=== PATIENT | female | born 1960 | race Caucasian/White ===

== ENCOUNTER → 2023-12-01 07:36 | Outpatient (REF) | payer OTHER, SELFPAY | LOC: EMG 07:36 | PROVIDERS: ATTENDING PHYSICIAN Orthopaedic Surgery Hand Surgery | DX: M25.532 Pain in left wrist (principal); R20.0 Anesthesia of skin | CPT/HCPCS: 95886; 95909 ==

== ENCOUNTER → 2024-04-04 07:16 | Outpatient (REF) | payer OTHER, SELFPAY | LOC: RAD 07:16 | PROVIDERS: ATTENDING PHYSICIAN Family Medicine | DX: R06.02 Shortness of breath (principal); Z85.3 Personal history of malignant neoplasm of breast | CPT/HCPCS: 71250 ==

== ENCOUNTER → 2024-06-21 14:37 | Outpatient (REF) | payer OTHER, SELFPAY | LOC: RAD 14:37 | PROVIDERS: ATTENDING PHYSICIAN Internal Medicine Critical Care Medicine; FAMILY PHYSICIAN Family Medicine | DX: R91.1 Solitary pulmonary nodule (principal) | CPT/HCPCS: 71250 ==

== ENCOUNTER → 2024-07-26 10:15 | Outpatient (REF) | payer OTHER, SELFPAY ==
--- NOTE | 2024-07-26 11:51 | CARDSERVLU ---
Addendum entered by Jayashree Alarcon RN 07/26/24 11:56:
correction-2x2 applied and taped
Original Note:
Echocardiogram with Lumason completed after protocol screening completed. Allergies verified.
Patent IV site: _Left metacarpal 22 G PC inserted by IV team____
IV site flushed with 0.9% NaCl pre and post administration.
Diluted bolus method utilized to enhance visualization of ventricular beltran.
Total volume given: ___4_ mL
Patient tolerated all procedures well without complications.
Heplock D/Freddie at 1148, site clear, no redness, no edema. Pressure held, no bleeding,22 applied and taped. Pt offers no complaints.
== END ==
LOC: RCS 10:15
PROVIDERS: ATTENDING PHYSICIAN Internal Medicine Cardiovascular Disease; FAMILY PHYSICIAN Family Medicine
DX: R06.02 Shortness of breath (principal)
CPT/HCPCS: 93306; Q9950

== ENCOUNTER 2024-07-29 08:50 | Day surgery (SDC) | payer OTHER, SELFPAY ==
[2024-07-08 08:23] VITALS: BMI 26.9
[2024-07-08 09:39] LABS: INR 1.06; PT 13.6 Sec (11.4-14.6)
[2024-07-08 09:40] LABS: APTT 28.9 Sec (23.4-35.0)
--- NOTE | 2024-07-08 15:56 | PTCARENOTE ---
Abn ECG, Dr Hawk notified, no additional requests made.
[2024-07-29] VITALS (7 sets, daily range): BP systolic 116–150; BP diastolic 61–85; BMI 27.8; BMI 28.7
== END 2024-07-29 12:51 | disposition home or self-care (01) ==
LOC: GI 08:50
PROVIDERS: ATTENDING PHYSICIAN Internal Medicine Critical Care Medicine; FAMILY PHYSICIAN Family Medicine
DX: D14.31 Benign neoplasm of right bronchus and lung (principal); R91.1 Solitary pulmonary nodule
CPT/HCPCS: 31629; 31624; 31627; 31654; 88172; 88173; 88305; 36415; 71045; 76000; 85610; 85730; 88112; 93005; 94640; C1887

== ENCOUNTER 2024-08-07 06:25 | Outpatient (RCR) | payer OTHER, SELFPAY | END 2024-08-07 23:59 | disposition home or self-care (01) | LOC: RPT 06:25 | PROVIDERS: ATTENDING PHYSICIAN Orthopaedic Surgery Hand Surgery; FAMILY PHYSICIAN Family Medicine | DX: M75.121 Complete rotator cuff tear or rupture of right shoulder, not specified as traumatic (principal); Z73.6 Limitation of activities due to disability | CPT/HCPCS: 97112; 97162 ==

== ENCOUNTER 2024-08-21 09:57 | Outpatient (RCR) | payer OTHER, SELFPAY | END 2024-08-21 23:59 | disposition home or self-care (01) | LOC: RPT 09:57 | PROVIDERS: ATTENDING PHYSICIAN Orthopaedic Surgery Hand Surgery; FAMILY PHYSICIAN Family Medicine | DX: M75.121 Complete rotator cuff tear or rupture of right shoulder, not specified as traumatic (principal); Z73.6 Limitation of activities due to disability; M62.81 Muscle weakness (generalized) | CPT/HCPCS: 97010; 97110; 97140 ==

== ENCOUNTER → 2024-09-24 09:44 | Outpatient (REF) | payer OTHER, SELFPAY | LOC: RAD 09:44 | PROVIDERS: ATTENDING PHYSICIAN Internal Medicine Critical Care Medicine; FAMILY PHYSICIAN Family Medicine | DX: R91.1 Solitary pulmonary nodule (principal) | CPT/HCPCS: 71250 ==

== ENCOUNTER → 2024-10-29 10:26 | Outpatient (REF) | payer OTHER, SELFPAY | LOC: HWRAD 10:26 | PROVIDERS: ATTENDING PHYSICIAN Student in an Organized Health Care Education/Training Program; FAMILY PHYSICIAN Family Medicine | DX: M75.121 Complete rotator cuff tear or rupture of right shoulder, not specified as traumatic (principal) | CPT/HCPCS: 73200 ==

== ENCOUNTER → 2025-01-21 13:17 | Outpatient (REF) | payer OTHER, SELFPAY | LOC: HWRAD 13:17 | PROVIDERS: ATTENDING PHYSICIAN Physician Assistant; FAMILY PHYSICIAN Family Medicine; REFERRING PHYSICIAN Orthopaedic Surgery Hand Surgery | DX: Z96.611 Presence of right artificial shoulder joint (principal) | CPT/HCPCS: 73200 ==

== ENCOUNTER 2025-01-29 06:21 | Day surgery (SDC) | payer OTHER, SELFPAY ==
[2025-01-29] VITALS (7 sets, daily range): BP systolic 112–155; BP diastolic 62–90; BMI 28.1
[2025-01-29] MEDS: CELEBREX 200 MG PO (12:07)
[2025-01-29] MEDS: NORMOSOL-R/PLASMALYTE-A 1000 IV (12:07)
[2025-01-29] MEDS: TYLENOL 1000 MG PO (12:08)
[2025-01-29] MEDS: FLEXERIL 10 MG PO (12:11)
== END 2025-01-29 16:57 | disposition home or self-care (01) ==
LOC: SDS 06:21
PROVIDERS: ATTENDING PHYSICIAN Orthopaedic Surgery Hand Surgery
DX: S42.111A Displaced fracture of body of scapula, right shoulder, initial encounter for closed fracture (principal); X50.0XXA Overexertion from strenuous movement or load, initial encounter
CPT/HCPCS: 23585; C1713; 73010; 73020; 76000

== ENCOUNTER → 2025-08-19 20:04 | Outpatient (REF) | payer OTHER, SELFPAY | LOC: MRI 20:04 | PROVIDERS: ATTENDING PHYSICIAN Family Medicine | DX: G45.9 Transient cerebral ischemic attack, unspecified (principal) | CPT/HCPCS: 70546; A9575 ==

== ENCOUNTER → 2025-08-20 20:13 | Outpatient (REF) | payer OTHER, SELFPAY | LOC: MRI 20:13 | PROVIDERS: ATTENDING PHYSICIAN Family Medicine | DX: G45.9 Transient cerebral ischemic attack, unspecified (principal) | CPT/HCPCS: 70553; A9575 ==